=== PATIENT | female | born 1935 | race Caucasian/White ===

== ENCOUNTER 2020-10-31 14:36 | Inpatient (IN) ==
[2020-10-31] MEDS ORDERED: Bumetanide IV 10 MG in Premix IV 0 ML IV SCH ×2 (16:00→17:02)
[2020-10-31] MEDS ORDERED: Premix IV 0 ML ONE (16:23)
[2020-10-31] MEDS ORDERED: Bumetanide IV 0.25 MG/ML 4 ml VIAL (1 mg) ONE (17:10)
[2020-10-31] MEDS: Labetalol IV 5 MG/ML 20 ml VIAL IV PUSH PRN ×2 (18:41→20:45)
[2020-10-31 19:29] LABS: Influenza A Molecular Negative (Negative); Influenza B Molecular Negative (Negative)
[2020-10-31 19:47] LABS: Urine Appearance Clear; Urine Bilirubin Negative (Negative); Urine Blood 1+ (Negative); Urine Color Colorless; Urine Glucose Negative (Negative); Urine Ketones Negative (Negative); Urine Nitrite Negative (Negative); Urine Protein Negative (Negative); Urine Specific Gravity 1.008 (1.002-1.030); Urine Urobilinogen Negative (Negative)
[2020-10-31 19:53] LABS: Urine Bacteria Absent (Absent); Urine Red Blood Cell Trace(0-2/hpf) (Absent); Urine White Blood Cell Absent (Absent)
[2020-10-31] MEDS: ALOE VERA PO SCH (20:45)
[2020-10-31 20:50] LABS: Hematocrit 40 % (35-47); Hemoglobin 13.7 g/dL (12.0-16.0); Mean Corpuscular HGB Conc 34 g/dL (31-36); Mean Corpuscular Hemoglobin 33 pg (27-31); Mean Corpuscular Volume 97 fL (80-97); Red Blood Count 4.13 10^6 /uL (3.70-4.87); Red Cell Distribution Width 13 % (10-15); White Blood Count 9.1 10^3/uL (3.5-10.8)
[2020-10-31 21:13] LABS: Troponin I 0.04 ng/mL (<0.03)
[2020-10-31 21:18] LABS: ABS Lymphocytes 0.6 10^3/ul (1.0-4.8); ABS Monocytes 0.9 10^3/ul (0-0.8); ABS Neutrophils 7.6 10^3/ul (1.5-7.7); Eosinophil % 0.1 %; Lymphocyte % 6.9 %; Nucleated Red Blood Cells % 0.1
[2020-10-31 21:24] LABS: Acetaminophen < 15 mcg/mL; Anion Gap 13 mmol/L (2-11); Blood Urea Nitrogen 8 mg/dL (6-24); CO2 Carbon Dioxide 26 mmol/L (22-32); Calcium 8.6 mg/dL (8.6-10.3); Chloride 92 mmol/L (101-111); EGFR African American 121.7 (>60); EGFR Non-African American 100.6 (>60); Glucose 145 mg/dL (70-100); Magnesium 1.9 mg/dL (1.9-2.7); Phosphorus 3.6 mg/dL (2.5-5.0); Potassium 3.3 mmol/L (3.5-5.0); Salicylate < 2.50 mg/dL (<30); Sodium 131 mmol/L (135-145)
[2020-10-31] MEDS ORDERED: Magnesium Sulfate IV 1GM/100ML 1 GM/100 ML BAG IV ONE (21:27)
[2020-10-31] MEDS: KCL 20 MEQ/100 ML IVPREMIX 20 MEQ/100 ML BAG IV SCH (21:51)
[2020-10-31 21:54] LABS: Hepatitis B Surface Antigen Nonreactive (Nonreactive)
[2020-10-31 21:59] LABS: Hepatitis A Ab IgM Negative (Negative); Hepatitis B Core IgM Nonreactive (Nonreactive)
[2020-10-31 22:11] LABS: Hepatitis C Antibody Negative (Negative)
[2020-11-01] MEDS: KCL 20 MEQ/100 ML IVPREMIX 20 MEQ/100 ML BAG IV SCH (01:57)
[2020-11-01 05:48] LABS: ABS Lymphocytes 0.8 10^3/ul (1.0-4.8); ABS Neutrophils 5.7 10^3/ul (1.5-7.7); Eosinophil % 0.3 %; Hematocrit 37 % (35-47); Hemoglobin 12.5 g/dL (12.0-16.0); Mean Corpuscular HGB Conc 34 g/dL (31-36); Mean Corpuscular Hemoglobin 32 pg (27-31); Mean Corpuscular Volume 96 fL (80-97); Mean Platelet Volume 7.4 fL (7.4-10.4); Platelet Count 246 10^3/uL (150-450); Red Blood Count 3.86 10^6 /uL (3.70-4.87); Red Cell Distribution Width 14 % (10-15); White Blood Count 7.6 10^3/uL (3.5-10.8)
[2020-11-01 05:54] LABS: INR 1.43 (0.82-1.09)
[2020-11-01 06:05] LABS: Albumin/Globulin Ratio 1.3 (1-3); Calcium 8.2 mg/dL (8.6-10.3); EGFR African American 135.3 (>60); EGFR Non-African American 111.8 (>60); Globulin 3.1 g/dL (2-4); Magnesium 2.1 mg/dL (1.9-2.7); Phosphorus 3.2 mg/dL (2.5-5.0); Potassium 3.7 mmol/L (3.5-5.0); Total Protein 7.1 g/dL (6.4-8.9)
[2020-11-01] MEDS ORDERED: Potassium Chlor 20 meq TAB.ER PO ONE (06:08)
[2020-11-01] MEDS ORDERED: Furosemide 40 mg/4 ml IV VIAL IV SLOW PU ONE (08:22)
[2020-11-01] MEDS: ALOE VERA PO SCH ×2 (08:43→21:08)
[2020-11-01] MEDS: Vitamin THERAPEUTIC TAB PO SCH (08:43)
[2020-11-01] MEDS: Psyllium PAK PO SCH (08:43)
[2020-11-02 06:31] LABS: Albumin 3.5 g/dL (3.2-5.2); Albumin/Globulin Ratio 1.2 (1-3); Calcium 8.3 mg/dL (8.6-10.3); EGFR African American 132.3 (>60); EGFR Non-African American 109.4 (>60); Phosphorus 2.9 mg/dL (2.5-5.0); Potassium 3.6 mmol/L (3.5-5.0); Total Bilirubin 0.8 mg/dL (0.2-1.0); Total Protein 6.5 g/dL (6.4-8.9)
[2020-11-02] MEDS ORDERED: Potassium Chlor 20 meq TAB.ER PO ONE (07:39)
[2020-11-02] MEDS ORDERED: Regadenoson 0.4 MG/5 ML SYRINGE ONE (07:41)
[2020-11-02] MEDS ORDERED: Aminophylline 25 MG/ML VIAL ONE (07:41)
[2020-11-02] MEDS ORDERED: Furosemide 40 mg/4 ml IV VIAL IV ONE (08:39)
[2020-11-02] MEDS: Labetalol IV 5 MG/ML 20 ml VIAL IV PUSH PRN ×2 (09:09→13:50)
[2020-11-02] MEDS: Vitamin THERAPEUTIC TAB PO SCH (10:54)
[2020-11-02] MEDS: Psyllium PAK PO SCH ×3 (10:55→17:46)
[2020-11-02] MEDS: ALOE VERA PO SCH ×2 (11:04→20:12)
[2020-11-02 15:11] LABS: Urine Alcohol Negative mg/dL (Cutoff: 10); Urine Barbiturates Negative; Urine Benzodiazepines Negative; Urine Cocaine Negative; Urine Methadone Negative (Negative); Urine Opiates Negative (Negative); Urine Phencyclidine Negative ng/mL (Cutoff: 25); Urine Tetrahydrocannabinol Negative ng/mL (Cutoff: 50)
[2020-11-02 15:17] LABS: Body Fluid Source Pleural Fluid
[2020-11-02 16:29] LABS: Body Fluid Mono 68 %
[2020-11-03 06:25] LABS: Phosphorus 3.4 mg/dL (2.5-5.0)
[2020-11-03 07:29] LABS: Albumin 3.3 g/dL (3.2-5.2); Albumin/Globulin Ratio 1.2 (1-3); Calcium 8.2 mg/dL (8.6-10.3); EGFR African American 112.5 (>60); Globulin 2.8 g/dL (2-4); Magnesium 1.9 mg/dL (1.9-2.7); Total Bilirubin 0.8 mg/dL (0.2-1.0); Total Protein 6.1 g/dL (6.4-8.9)
[2020-11-03] MEDS ORDERED: Furosemide 40 mg/4 ml IV VIAL IV ONE (08:11)
[2020-11-03] MEDS: Vitamin THERAPEUTIC TAB PO SCH (08:53)
[2020-11-03] MEDS: ALOE VERA PO SCH ×2 (10:10→20:55)
[2020-11-03 14:08] LABS: Body Fluid Source Pleural Fluid
[2020-11-03 15:34] LABS: Body Fluid Mono 71 %; Body Fluid Other Cells 7
[2020-11-03] MEDS ORDERED: Psyllium PAK PO SCH (17:00)
[2020-11-03 18:40] LABS: Lactate Dehydrogenase, BF 106 U/L
[2020-11-04 06:49] LABS: ABS Eosinophils 0.1 10^3/ul (0-0.6); ABS Lymphocytes 1.5 10^3/ul (1.0-4.8); ABS Monocytes 0.7 10^3/ul (0-0.8); ABS Neutrophils 3.5 10^3/ul (1.5-7.7); Eosinophil % 2.2 %; Hematocrit 34 % (35-47); Hemoglobin 11.6 g/dL (12.0-16.0); Mean Corpuscular HGB Conc 34 g/dL (31-36); Mean Corpuscular Hemoglobin 33 pg (27-31); Mean Corpuscular Volume 96 fL (80-97); Mean Platelet Volume 6.4 fL (7.4-10.4); Platelet Count 323 10^3/uL (150-450); Red Blood Count 3.54 10^6 /uL (3.70-4.87); Red Cell Distribution Width 13 % (10-15); White Blood Count 5.9 10^3/uL (3.5-10.8)
[2020-11-04 07:17] LABS: Albumin 3.3 g/dL (3.2-5.2); Albumin/Globulin Ratio 1.2 (1-3); Calcium 8.4 mg/dL (8.6-10.3); EGFR African American 91.5 (>60); EGFR Non-African American 75.6 (>60); Globulin 2.7 g/dL (2-4); Potassium 3.6 mmol/L (3.5-5.0); Total Bilirubin 0.6 mg/dL (0.2-1.0)
[2020-11-04] MEDS: ALOE VERA PO SCH (08:26)
[2020-11-04 08:34] VITALS: BP 148/67
[2020-11-04] MEDS: Vitamin THERAPEUTIC TAB PO SCH (08:41)
[2020-11-04 11:50] LABS: Fluid Type, Glucose PLEURAL; Glucose, BF 122 mg/dL
[2020-11-04 11:56] LABS: Albumin, BF 2.1 g/dL; Fluid Type, Albumin PLEURAL; Fluid Type, Protein, Total PLEURAL
[2020-11-04 14:09] LABS: Lactate Dehydrogenase, BF 123 U/L
[2020-11-05 10:45] LABS: Albumin, BF 2.4 g/dL; Fluid Type, Albumin PLEURAL; Fluid Type, Glucose PLEURAL; Fluid Type, Protein, Total PLEURAL; Glucose, BF 116 mg/dL
== END 2020-11-04 15:40 | disposition home or self-care (01) | DRG 291 ==
LOC: ED 14:36 → ICU 15:32 → MEDTELE 11-03 11:02
PROVIDERS: ADMIT Internal Medicine; ATTEND Student in an Organized Health Care Education/Training Program

== ENCOUNTER 2020-12-01 10:04 | Inpatient (IN) ==
[2020-12-01] MEDS ORDERED: Albuterol/Ipratropium NEB.SOL (2.5/0.5 MG) 3 ML NEB.SOLN INH ONE (10:31)
[2020-12-01 10:53] LABS: ABS Basophils 0.1 10^3/ul (0-0.2); ABS Eosinophils 0.1 10^3/ul (0-0.6); ABS Lymphocytes 0.6 10^3/ul (1.0-4.8); ABS Monocytes 0.5 10^3/ul (0-0.8); ABS Neutrophils 4.3 10^3/ul (1.5-7.7); Eosinophil % 1.4 %; Hematocrit 35 % (35-47); Hemoglobin 11.7 g/dL (12.0-16.0); Lymphocyte % 11.1 %; Mean Corpuscular HGB Conc 33 g/dL (31-36); Mean Corpuscular Hemoglobin 32 pg (27-31); Mean Corpuscular Volume 96 fL (80-97); Mean Platelet Volume 6.9 fL (7.4-10.4); Nucleated Red Blood Cells % 0.1; Platelet Count 220 10^3/uL (150-450); Red Blood Count 3.64 10^6 /uL (3.70-4.87); Red Cell Distribution Width 14 % (10-15); White Blood Count 5.6 10^3/uL (3.5-10.8)
[2020-12-01 11:11] LABS: ALT 74 U/L (7-52); AST 39 U/L (13-39); Albumin 3.9 g/dL (3.2-5.2); Albumin/Globulin Ratio 1.4 (1-3); Alkaline Phosphatase 151 U/L (35-149); Anion Gap 8 mmol/L (2-11); Blood Urea Nitrogen 6 mg/dL (6-24); CO2 Carbon Dioxide 26 mmol/L (22-32); Calcium 8.7 mg/dL (8.6-10.3); Chloride 95 mmol/L (101-111); EGFR Non-African American 71.1 (>60); Globulin 2.7 g/dL (2-4); Glucose 122 mg/dL (70-100); Potassium 3.7 mmol/L (3.5-5.0); Sodium 129 mmol/L (135-145); Total Protein 6.6 g/dL (6.4-8.9)
[2020-12-01] MEDS ORDERED: cefTRIAXone 1 gm/50 mL NS BAG 1 GM/50 ML BAG IV ONE (11:16)
[2020-12-01] MEDS ORDERED: Magnesium Hydroxide LIQ 30 ML UDC PO PRN (12:03)
[2020-12-01] MEDS ORDERED: Furosemide 40 mg/4 ml IV VIAL IV SLOW PU ONE (12:05)
[2020-12-01 12:33] LABS: Vitamin B12 1041 pg/mL (180-914)
[2020-12-01 12:34] LABS: Folate > 20.00 ng/mL (5.90-24.80)
[2020-12-01] MEDS: Heparin 5000 UNITS/ML 1 mL VIAL SUBCUT SCH (22:13)
[2020-12-01] MEDS: Amiodarone 400 mg TAB PO SCH (22:13)
[2020-12-02 04:37] LABS: ABS Eosinophils 0.1 10^3/ul (0-0.6); ABS Lymphocytes 0.7 10^3/ul (1.0-4.8); ABS Monocytes 0.8 10^3/ul (0-0.8); ABS Neutrophils 3.8 10^3/ul (1.5-7.7); Eosinophil % 2.5 %; Hematocrit 31 % (35-47); Hemoglobin 10.7 g/dL (12.0-16.0); Mean Corpuscular HGB Conc 35 g/dL (31-36); Mean Corpuscular Hemoglobin 33 pg (27-31); Mean Corpuscular Volume 95 fL (80-97); Mean Platelet Volume 7.3 fL (7.4-10.4); Platelet Count 204 10^3/uL (150-450); Red Blood Count 3.25 10^6 /uL (3.70-4.87); Red Cell Distribution Width 14 % (10-15); White Blood Count 5.6 10^3/uL (3.5-10.8)
[2020-12-02 04:49] LABS: Albumin 3.4 g/dL (3.2-5.2); Albumin/Globulin Ratio 1.4 (1-3); Calcium 8.1 mg/dL (8.6-10.3); EGFR African American 102.7 (>60); EGFR Non-African American 84.9 (>60); Globulin 2.4 g/dL (2-4); Magnesium 1.8 mg/dL (1.9-2.7); Potassium 3.1 mmol/L (3.5-5.0); Total Bilirubin 0.9 mg/dL (0.2-1.0); Total Protein 5.8 g/dL (6.4-8.9)
[2020-12-02] MEDS: Heparin 5000 UNITS/ML 1 mL VIAL SUBCUT SCH ×2 (05:18→12:21)
[2020-12-02] MEDS: Vitamin THERAPEUTIC TAB PO SCH (08:11)
[2020-12-02] MEDS: Calcium/Vitamin D TAB 250/125 TAB PO SCH (08:11)
[2020-12-02] MEDS: Amiodarone 400 mg TAB PO SCH ×2 (08:11→21:28)
[2020-12-02] MEDS ORDERED: Potassium Chlor 20 meq TAB.ER PO ONE ×2 (08:57→18:10)
[2020-12-02] MEDS ORDERED: Magnesium Sulfate 2 gm BAG 2 GM/50 ML BAG IVPB ONE (08:57)
[2020-12-02] MEDS ORDERED: Furosemide 40 mg/4 ml IV VIAL IV SLOW PU SCH (09:00)
[2020-12-02] MEDS: Enoxaparin 60 MG/0.6 ML SYR SUBCUT SCH (17:01)
[2020-12-02 18:06] LABS: Calcium 8.6 mg/dL (8.6-10.3); EGFR African American 64.4 (>60); EGFR Non-African American 53.2 (>60); Magnesium 2.3 mg/dL (1.9-2.7); Potassium 3.8 mmol/L (3.5-5.0)
[2020-12-02] MEDS ORDERED: Furosemide 40 mg/4 ml IV VIAL IV SLOW PU ONE (18:09)
[2020-12-03] MEDS: Enoxaparin 60 MG/0.6 ML SYR SUBCUT SCH ×2 (05:18→17:16)
[2020-12-03] MEDS: Amiodarone 400 mg TAB PO SCH ×2 (09:01→21:14)
[2020-12-03] MEDS: Vitamin THERAPEUTIC TAB PO SCH (09:01)
[2020-12-03] MEDS: Calcium/Vitamin D TAB 250/125 TAB PO SCH (09:01)
[2020-12-03 09:26] LABS: ABS Basophils 0.1 10^3/ul (0-0.2); ABS Eosinophils 0.2 10^3/ul (0-0.6); ABS Lymphocytes 0.7 10^3/ul (1.0-4.8); ABS Monocytes 0.7 10^3/ul (0-0.8); Eosinophil % 3.6 %; Hematocrit 35 % (35-47); Hemoglobin 11.8 g/dL (12.0-16.0); Lymphocyte % 15.8 %; Mean Corpuscular HGB Conc 34 g/dL (31-36); Mean Corpuscular Hemoglobin 33 pg (27-31); Mean Corpuscular Volume 95 fL (80-97); Mean Platelet Volume 7.3 fL (7.4-10.4); Nucleated Red Blood Cells % 0.1; Platelet Count 264 10^3/uL (150-450); Red Blood Count 3.62 10^6 /uL (3.70-4.87); Red Cell Distribution Width 14 % (10-15); White Blood Count 4.6 10^3/uL (3.5-10.8)
[2020-12-03 09:42] LABS: Albumin 3.7 g/dL (3.2-5.2); Albumin/Globulin Ratio 1.4 (1-3); Calcium 8.4 mg/dL (8.6-10.3); EGFR Non-African American 57.9 (>60); Globulin 2.7 g/dL (2-4); Potassium 3.6 mmol/L (3.5-5.0); Total Bilirubin 0.8 mg/dL (0.2-1.0); Total Protein 6.4 g/dL (6.4-8.9)
[2020-12-03] MEDS ORDERED: Potassium Chlor 20 meq TAB.ER PO ONE (09:43)
[2020-12-03] MEDS ORDERED: Furosemide 20 mg/2 ml IV VIAL IV SLOW PU ONE (14:06)
[2020-12-04] MEDS: Enoxaparin 60 MG/0.6 ML SYR SUBCUT SCH (05:39)
[2020-12-04 06:15] LABS: ABS Basophils 0.1 10^3/ul (0-0.2); ABS Eosinophils 0.2 10^3/ul (0-0.6); ABS Monocytes 0.8 10^3/ul (0-0.8); ABS Neutrophils 2.9 10^3/ul (1.5-7.7); Eosinophil % 4.6 %; Hematocrit 32 % (35-47); Hemoglobin 11.1 g/dL (12.0-16.0); Lymphocyte % 19.4 %; Mean Corpuscular HGB Conc 34 g/dL (31-36); Mean Corpuscular Hemoglobin 33 pg (27-31); Mean Corpuscular Volume 96 fL (80-97); Mean Platelet Volume 6.9 fL (7.4-10.4); Platelet Count 263 10^3/uL (150-450); Red Blood Count 3.36 10^6 /uL (3.70-4.87); Red Cell Distribution Width 14 % (10-15); White Blood Count 5.1 10^3/uL (3.5-10.8)
[2020-12-04 06:40] LABS: Calcium 8.4 mg/dL (8.6-10.3); EGFR African American 73.7 (>60); EGFR Non-African American 60.9 (>60); Magnesium 2.2 mg/dL (1.9-2.7); Potassium 3.8 mmol/L (3.5-5.0)
[2020-12-04] MEDS: Calcium/Vitamin D TAB 250/125 TAB PO SCH (08:37)
[2020-12-04] MEDS: Vitamin THERAPEUTIC TAB PO SCH (08:38)
[2020-12-04] MEDS: Amiodarone 400 mg TAB PO SCH (08:38)
[2020-12-04] MEDS ORDERED: Potassium Chlor 20 meq TAB.ER PO ONE (10:25)
[2020-12-04 13:06] VITALS: BP 129/51
== END 2020-12-04 16:00 | disposition home or self-care (01) | DRG 291 ==
LOC: ED 10:04 → MEDTELE 15:19
PROVIDERS: ADMIT Internal Medicine; ATTEND Hospitalist

== ENCOUNTER 2020-12-22 13:55 | Inpatient (IN) ==
[2020-12-22] MEDS ORDERED: Al Hydrox/Mg Hydrox/Simet LIQ 30 ML UDC PO ONE (14:49)
[2020-12-22 15:33] LABS: Troponin I 0.01 ng/mL (<0.03)
[2020-12-22 15:44] LABS: Urine Appearance Clear; Urine Bilirubin Negative (Negative); Urine Blood Negative (Negative); Urine Color Yellow; Urine Glucose Negative (Negative); Urine Ketones Negative (Negative); Urine Nitrite Negative (Negative); Urine Protein Negative (Negative); Urine Specific Gravity 1.003 (1.002-1.030); Urine Urobilinogen Negative (Negative)
[2020-12-22 15:52] LABS: Albumin 4.3 g/dL (3.2-5.2); Albumin/Globulin Ratio 1.4 (1-3); Calcium 9.3 mg/dL (8.6-10.3); EGFR African American 58.1 (>60); Magnesium 2.1 mg/dL (1.9-2.7); Potassium 4.4 mmol/L (3.5-5.0); Total Bilirubin 0.6 mg/dL (0.2-1.0); Total Protein 7.3 g/dL (6.4-8.9)
[2020-12-22 16:08] LABS: ABS Lymphocytes 0.6 10^3/ul (1.0-4.8); ABS Monocytes 0.7 10^3/ul (0-0.8); ABS Neutrophils 2.8 10^3/ul (1.5-7.7); Eosinophil % 0.6 %; Hematocrit 37 % (35-47); Lymphocyte % 14.4 %; Mean Corpuscular HGB Conc 35 g/dL (31-36); Mean Corpuscular Hemoglobin 33 pg (27-31); Mean Corpuscular Volume 93 fL (80-97); Mean Platelet Volume 7.3 fL (7.4-10.4); Platelet Count 262 10^3/uL (150-450); Red Cell Distribution Width 13 % (10-15); White Blood Count 4.1 10^3/uL (3.5-10.8)
[2020-12-22] MEDS ORDERED: NS 0.9% 1000 ml BAG 1,000 ML IV SCH ×2 (16:30→17:25)
[2020-12-22] MEDS ORDERED: Al Hydrox/Mg Hydrox/Simet LIQ 30 ML UDC PO PRN (17:14)
[2020-12-22 19:21] LABS: EGFR African American 57.5 (>60); EGFR Non-African American 47.5 (>60); Potassium 4.4 mmol/L (3.5-5.0)
[2020-12-22 23:34] LABS: Calcium 8.7 mg/dL (8.6-10.3); EGFR African American 54.6 (>60); EGFR Non-African American 45.1 (>60); Potassium 3.8 mmol/L (3.5-5.0)
[2020-12-23] MEDS: Amiodarone 400 mg TAB PO SCH (08:43)
[2020-12-23] MEDS: Potassium Chlor 10 meq TAB PO SCH (08:43)
[2020-12-23] MEDS ORDERED: NS 0.9% 1000 ml BAG 1,000 ML IV SCH (11:30)
[2020-12-23 15:36] LABS: Calcium 8.3 mg/dL (8.6-10.3); EGFR African American 65.7 (>60); EGFR Non-African American 54.3 (>60); Potassium 4.7 mmol/L (3.5-5.0)
[2020-12-23 16:32] LABS: TSH Ultra Thyroid Stim Horm 2.06 mcIU/mL (0.34-5.60)
[2020-12-23 16:34] LABS: Free T4 1.32 ng/dL (0.61-1.12)
[2020-12-24 06:57] LABS: ABS Eosinophils 0.1 10^3/ul (0-0.6); ABS Lymphocytes 0.9 10^3/ul (1.0-4.8); ABS Monocytes 0.6 10^3/ul (0-0.8); ABS Neutrophils 2.6 10^3/ul (1.5-7.7); Eosinophil % 1.7 %; Hematocrit 33 % (35-47); Hemoglobin 11.5 g/dL (12.0-16.0); Mean Corpuscular HGB Conc 35 g/dL (31-36); Mean Corpuscular Hemoglobin 33 pg (27-31); Mean Corpuscular Volume 94 fL (80-97); Mean Platelet Volume 6.5 fL (7.4-10.4); Platelet Count 203 10^3/uL (150-450); Red Blood Count 3.49 10^6 /uL (3.70-4.87); Red Cell Distribution Width 13 % (10-15); White Blood Count 4.2 10^3/uL (3.5-10.8)
[2020-12-24 07:12] LABS: Calcium 8.4 mg/dL (8.6-10.3); EGFR African American 79.8 (>60); EGFR Non-African American 65.9 (>60); Potassium 4.4 mmol/L (3.5-5.0)
[2020-12-24] MEDS: Amiodarone 400 mg TAB PO SCH (08:29)
[2020-12-24] MEDS: Potassium Chlor 10 meq TAB PO SCH (08:30)
[2020-12-24] MEDS ORDERED: Midazolam 10 mg/10 ml VIAL 1 mg/ml 10 ml VIAL (10 mg) ONE (11:30)
[2020-12-24] MEDS ORDERED: fentaNYL 100 mcg/2 ml 50 MCG/ML VIAL ONE (11:30)
[2020-12-24] MEDS ORDERED: Naloxone 0.4 mg VIAL 0.4 mg/ml 1 ml VIAL ONE (11:30)
[2020-12-24] MEDS ORDERED: Flumazenil 0.5 mg/5 ml 0.1 MG/ML 5 ml VIAL ONE (11:30)
[2020-12-25 07:19] LABS: Calcium 8.4 mg/dL (8.6-10.3); EGFR African American 78.7 (>60); Magnesium 2.1 mg/dL (1.9-2.7); Potassium 4.6 mmol/L (3.5-5.0)
[2020-12-25] MEDS: Potassium Chlor 10 meq TAB PO SCH (07:49)
[2020-12-25 11:40] LABS: Hematocrit 32 % (35-47); Hemoglobin 11.3 g/dL (12.0-16.0); Mean Corpuscular HGB Conc 35 g/dL (31-36); Mean Corpuscular Hemoglobin 33 pg (27-31); Mean Corpuscular Volume 95 fL (80-97); Mean Platelet Volume 6.5 fL (7.4-10.4); Platelet Count 198 10^3/uL (150-450); Red Cell Distribution Width 13 % (10-15); White Blood Count 3.5 10^3/uL (3.5-10.8)
[2020-12-25 15:11] VITALS: BP 161/68
== END 2020-12-25 16:15 | disposition home or self-care (01) | DRG 641 ==
LOC: MED 13:55 → ED 13:55 → MED 12-24 02:09 → ICU 12-24 11:12 → MED 12-24 14:20
PROVIDERS: ADMIT Internal Medicine; ATTEND Internal Medicine

== ENCOUNTER 2022-10-15 11:27 | Observation (INO) ==
[2022-10-15 12:15] LABS: ABS Eosinophils 0.1 10^3/uL (0.0-0.5); ABS Lymphocytes 0.6 10^3/uL (1.0-4.8); ABS Monocytes 0.5 10^3/uL (0.0-0.9); Eosinophil % 2.8 %; Hematocrit 36.9 % (35-45); Hemoglobin 12.9 g/dL (11.5-14.3); Lymphocyte % 14.1 %; Mean Corpuscular Hemoglobin 32.1 pg (27-33); Mean Corpuscular Hgb Conc 34.9 g/dL (31-36); Mean Corpuscular Volume 92.1 fL (80-97); Mean Platelet Volume 6.5 fL (7.5-11.2); Platelet Count 223 10^3/uL (150-450); Red Blood Count 4.01 10^6/uL (3.63-4.92); Red Cell Distribution Width 13.9 % (12-17); White Blood Count 4.3 10^3/uL (3.8-11.8)
[2022-10-15 12:27] LABS: INR 1.46 (0.88-1.18)
[2022-10-15 12:49] LABS: Albumin 4.2 g/dL (3.2-5.2); Albumin/Globulin Ratio 1.6 (1-3); Calcium 8.9 mg/dL (8.6-10.3); Creatinine, Serum 0.94 mg/dL (0.51-0.95); Globulin 2.6 g/dL (2-4); Total Bilirubin 0.7 mg/dL (0.2-1.0); Total Protein 6.8 g/dL (6.4-8.9); eGFR CKD-EPI 58.4 (>60)
[2022-10-15] MEDS ORDERED: NS 0.9% 1000 ml BAG 1,000 ML IV ONE (12:55)
[2022-10-15 13:40] LABS: High Sensitivity Troponin 1 Hr 6 pg/mL (<15)
[2022-10-15] MEDS ORDERED: hydrALAZINE 20 mg/ml 1 ML Vial IV IV SLOW PU PRN (14:27)
[2022-10-15 14:37] LABS: Osmolality Serum 260 mOsm/kg (275-295)
[2022-10-15 15:40] LABS: Urine Osmo 305 mOsm/kg (150-1150)
[2022-10-15 17:31] LABS: Calcium 6.8 mg/dL (8.6-10.3); Creatinine, Serum 0.67 mg/dL (0.51-0.95)
[2022-10-15 17:38] LABS: Potassium 4.5 mmol/L (3.5-5.0)
[2022-10-15] MEDS ORDERED: Calcium Gluconate 2 GM in NS 0.9% 100 ml BAG 100 ML IV ONE (18:22)
[2022-10-15 22:44] LABS: Calcium 9.3 mg/dL (8.6-10.3); Creatinine, Serum 0.75 mg/dL (0.51-0.95); Potassium 4.9 mmol/L (3.5-5.0); eGFR CKD-EPI 76.5 (>60)
[2022-10-16 06:18] LABS: ABS Basophils 0.1 10^3/uL (0.0-0.1); ABS Eosinophils 0.2 10^3/uL (0.0-0.5); ABS Lymphocytes 0.9 10^3/uL (1.0-4.8); ABS Monocytes 0.7 10^3/uL (0.0-0.9); ABS Neutrophils 2.7 10^3/uL (1.5-7.6); Eosinophil % 3.4 %; Hematocrit 32.9 % (35-45); Hemoglobin 11.4 g/dL (11.5-14.3); Lymphocyte % 20.7 %; Mean Corpuscular Hgb Conc 34.6 g/dL (31-36); Mean Corpuscular Volume 92.4 fL (80-97); Mean Platelet Volume 6.7 fL (7.5-11.2); Nucleated Red Blood Cells % 0.1 /100 WBC (0.0-0.4); Platelet Count 220 10^3/uL (150-450); Red Blood Count 3.56 10^6/uL (3.63-4.92); White Blood Count 4.5 10^3/uL (3.8-11.8)
[2022-10-16 06:48] LABS: Calcium 8.7 mg/dL (8.6-10.3); Creatinine, Serum 0.74 mg/dL (0.51-0.95); Potassium 4.9 mmol/L (3.5-5.0); eGFR CKD-EPI 77.8 (>60)
[2022-10-16 10:50] LABS: Calcium 8.6 mg/dL (8.6-10.3); Creatinine, Serum 0.79 mg/dL (0.51-0.95); Potassium 4.5 mmol/L (3.5-5.0); eGFR CKD-EPI 71.9 (>60)
[2022-10-16] MEDS ORDERED: Polyethylene Glycol 3350 17 GM PACKET PO PRN (17:27)
[2022-10-16] MEDS ORDERED: NS 0.9% 1000 ml BAG 1,000 ML IV SCH (18:45)
[2022-10-16 22:19] LABS: Calcium 8.2 mg/dL (8.6-10.3); Creatinine, Serum 0.8 mg/dL (0.51-0.95); Potassium 4.9 mmol/L (3.5-5.0); eGFR CKD-EPI 70.8 (>60)
[2022-10-16 23:18] LABS: Urine Appearance Cloudy; Urine Bilirubin Negative (Negative); Urine Blood Negative (Negative); Urine Color Yellow; Urine Glucose 3+(>=500 mg/dL) (Negative); Urine Ketones Negative (Negative); Urine Nitrite Negative (Negative); Urine Protein Negative (Negative); Urine Specific Gravity 1.013 (1.002-1.030); Urine Urobilinogen Negative (Negative)
[2022-10-16 23:23] LABS: Urine Bacteria Absent (Absent); Urine Red Blood Cell 1+(3-5/hpf) (Absent); Urine Squamous Epithelial Cell Present (Absent); Urine White Blood Cell 3+(>20/hpf) (Absent)
[2022-10-17 03:43] LABS: Creatinine, Serum 0.74 mg/dL (0.51-0.95); Potassium 4.7 mmol/L (3.5-5.0); eGFR CKD-EPI 77.8 (>60)
[2022-10-17] MEDS: NS 0.9% 1000 ml BAG 1,000 ML IV SCH ×3 (03:43→15:55)
[2022-10-17 06:41] LABS: Hematocrit 31.7 % (35-45); Hemoglobin 11.2 g/dL (11.5-14.3); Mean Corpuscular Hemoglobin 33.3 pg (27-33); Mean Corpuscular Hgb Conc 35.3 g/dL (31-36); Mean Corpuscular Volume 94.6 fL (80-97); Platelet Count 181 10^3/uL (150-450); Red Blood Count 3.35 10^6/uL (3.63-4.92); Red Cell Distribution Width 13.8 % (12-17)
[2022-10-17 07:16] LABS: Calcium 8.1 mg/dL (8.6-10.3); Creatinine, Serum 0.71 mg/dL (0.51-0.95); Magnesium 1.9 mg/dL (1.9-2.7); Potassium 4.7 mmol/L (3.5-5.0); eGFR CKD-EPI 81.7 (>60)
[2022-10-17] MEDS ORDERED: Magnesium Sulfate 2 gm BAG 2 GM/50 ML BAG IVPB ONE (08:00)
[2022-10-17 10:57] LABS: TSH Ultra Thyroid Stim Horm 1.3 mcIU/mL (0.34-5.60)
[2022-10-17 11:01] LABS: Free T4 1.36 ng/dL (0.61-1.12)
[2022-10-17 11:50] LABS: Urine Osmo 315 mOsm/kg (150-1150)
[2022-10-17 12:29] LABS: Creatinine, Serum 0.71 mg/dL (0.51-0.95); Potassium 4.4 mmol/L (3.5-5.0); eGFR CKD-EPI 81.7 (>60)
[2022-10-17 16:57] LABS: Calcium 7.8 mg/dL (8.6-10.3); Creatinine, Serum 0.76 mg/dL (0.51-0.95); Potassium 4.8 mmol/L (3.5-5.0); eGFR CKD-EPI 75.3 (>60)
[2022-10-17 18:11] VITALS: BP 118/53
== END 2022-10-17 18:35 | disposition home or self-care (01) ==
LOC: EDHOLD 11:27 → ED 11:27 → SUATTDRO 13:42 → MEDTELE 15:35
PROVIDERS: ADMIT Internal Medicine; ATTEND Internal Medicine